=== PATIENT | female | born 1950 | race Caucasian/White ===

== ENCOUNTER → 2021-04-25 11:46 | Outpatient (CLI) | payer OTHER, SELFPAY ==
[2021-04-25 12:16] LABS: COVID19 -Nasal RAPID Negative (Negative)
== END ==
PROVIDERS: Visit Provider Family Medicine Sleep Medicine
DX: Z20.822 Contact with and (suspected) exposure to COVID-19 (principal)
CPT/HCPCS: 87635; C9803

== ENCOUNTER → 2021-04-28 08:29 | Outpatient (CLI) | payer OTHER, SELFPAY ==
--- NOTE | 2021-04-28 | DI.NM.S_ITS ---
PROCEDURE: NM LITZY PERF SPECT REST & STR Rest and exercise myocardial perfusion SPECT with gated imaging and ejection fraction RADIOPHARMACEUTICAL: 12.5 mCi Tc-99m sestamibi IV at rest and 25/6 mCi Tc-99m sestamibi IV at peak exercise. A one day-protocol was performed. INDICATIONS: Chest pain, unspecified TECHNIQUE: Radiopharmaceutical was injected at peak stress test, and also at rest. SPECT images were obtained. SPECT myocardial perfusion images were displayed in short axis, horizontal long axis, and vertical long axis views. Gated images were reviewed using [employer] software. COMPARISON: None. CARDIAC STRESS: A standard Leo treadmill exercise tolerance test was performed by the patient under the supervision of an attending staff. The patient exercised for 6 minutes and 16 seconds; functional aerobic impairment (JULIAN) is -11%. Hemodynamic data: There is normal blood pressure and heart rate response to exercise stress. Patient achieved 87% of maximum predicted heart rate at peak exercise. Symptoms: Patient denied chest pain during exercise. EKG: Sinus rhythm with minimal ST depressions in the inferior and anterolateral leads at rest. With exercise, there were mild ST depressions in the inferior and anterolateral leads. No ectopy. FINDINGS: Raw data: There is good myocardial labeling by radiotracer. No significant motion artifacts. Rcei-nj-twswi ratio is 0.28 (normal is less than 0.38 for sestamibi tracer, and less than 0.50 for thallium tracer). Left ventricle function: Gated images demonstrate normal left ventricle wall thickening. No segmental wall motion abnormality. No transient ischemic dilation; TID is 0.91 (normal less than 1.3). The left ventricle resting end-diastolic volume is 93 mL. Left ventricle stress ejection fraction is 73%; normal values are above 45%. Myocardial perfusion: There is normal distribution of activity in the left and right ventricular myocardium. No fixed or reversible perfusion defects. IMPRESSION: Low risk, normal treadmill nuclear stress test 1) No perfusion evidence of ischemia or infarction. 2) Normal left ventricular size, wall motion, and systolic function (EF post stress 73%). 3) Mild ST depressions with exercise, which are probably due to baseline ST changes. 4) No angina during the study. 5) Above average exercise tolerance (6.4 METs, JULIAN -11%). Target heart rate achieved as 87% of maximum predicted heart rate reached. Appropriate BP response to exercise. 6) No prior nuclear stress test available for comparison. Dictated by: More Ramirez MD on 04/28/2021 at 16:22 Approved by: More Ramirez MD on 04/28/2021 at 16:26
--- NOTE | 2021-04-28 | DI.ECHO.S_ITS ---
[place] [facility]---------+ [facility] +---------+ : : [address] : : : : [id number] : : : : Phone: [phone]+ Echocardiogram Report + + :Name: ROSAMARIA CHAVIRA Study Date: 04/28/2021 Height: 60 in : :[facility] ReadingLocation: Weight: 125 lb : : Gender: Female BSA: 1.5 m2 : :: 1950 Age: 70 yrs BP: 153/95 mmHg: :Reason For Study: CHEST PAIN : :Ordering Physician: ARIANA : :WYATT Performed By: Lara Castillo : :Referring: WYATT LANE : + + Interpretation Summary The ejection fraction is estimated to be 60-65%. Grade II diastolic dysfunction. The left atrium is moderately dilated. A patent foramen ovale is suspected. The right ventricle is normal in size and function. There is mild mitral regurgitation. Pulmonary artery pressures cannot be estimated because of the lack of a measurable TR jet velocity. Procedure: A two-dimensional transthoracic echocardiogram with color flow and Doppler was performed. The study quality was technically adequate. There is no prior echocardiogram noted for this patient. The patient was in sinus rhythm with heart rates between 68-75 bpm during the exam. Left Ventricle: The left ventricle is normal in size and wall thickness. The ejection fraction is estimated to be 60-65%. Grade II diastolic dysfunction. Right Ventricle: The right ventricle is normal in size and function. Atria: The left atrium is moderately dilated. Right atrial size is normal. A patent foramen ovale is suspected. Mitral Valve: The mitral valve leaflets appear mildly thickened, but open well. There is mild mitral annular calcification. There is mild mitral regurgitation. Aortic Valve: The aortic valve is trileaflet. The aortic valve opens well. There is no aortic valve stenosis. There is trace aortic regurgitation. Tricuspid Valve: The tricuspid valve is normal in structure and function. There is trace tricuspid regurgitation. Pulmonary artery pressures cannot be estimated because of the lack of a measurable TR jet velocity. Pulmonic Valve: The pulmonic valve is not well seen, but is grossly normal. There is trace pulmonic regurgitation. Great Vessels: The aortic root is normal size. The dimensions of the ascending aorta are normal. The IVC is of normal diameter and collapses greater than 50% with a sniff. This suggests a low right atrial pressure of 3 mm Hg. Pericardium/ Pleura There is no pericardial effusion. There is no pleural effusion. MMode/2D Measurements & Calculations LVIDd: 4.3 cm LVOT diam: 2.0 cm LVIDs: 3.1 cm Ao root diam: 3.0 cm FS: 28.0 % asc Aorta Diam: 3.1 cm IVSd: 0.88 cm Ao Arch Diam (Prox Trans): 2.4 cm LVPWd: 0.72 cm LV ennis. diameter/BSA (cm/m^2): 2.8 LV sys. diameter/BSA (cm/m^2): 2.0 LA A2 area: 21.5 cm2 RA long axis: 4.5 cm LA A4 area: 20.2 cm2 RA area: 14.6 cm2 LA length (vol): 5.3 cm RA vol: 40.4 ml LA vol: 69.1 ml RA : 26.4 ml/m2 LA vol index: 45.2 ml/m2 IVC diam: 1.3 cm RVD1 (basal): 3.6 cm TAPSE: 2.0 cm Doppler Measurements & Calculations Ao V2 max: 138.6 cm/sec LVOT Max Ignacio: 94.0 cm/sec Ao V2 mean: 92.8 cm/sec LV V1 max P.5 mmHg Ao max P.7 mmHg LV V1 VTI: 18.7 cm Ao mean P.9 mmHg CONG(I,D): 1.9 cm2 Ao V2 VTI: 29.3 cm CONG(V,D): 2.0 cm2 sev ratio: 0.64 CONG indexed to BSA (cm^2/m^2): 1.3 MV E max ignacio: 82.6 cm/sec TR max ignacio: 231.7 cm/sec MV A max ignacio: 91.9 cm/sec TR max P.5 mmHg MV E/A: 0.90 PA V2 max: 88.2 cm/sec Med Peak E' Ignacio: 4.3 cm/sec PA V2 mean: 56.5 cm/sec E/E' med: 19.2 PA mean P.5 mmHg Lat Peak E' Ignacio: 6.4 cm/sec PA pr(Accel): 15.6 mmHg E/E' lat: 13.0 E/e' average: 16.1 MV dec time: 0.22 sec SV(LVOT): 56.1 ml Reading Physician:11:56 AM
--- NOTE | 2021-04-28 15:18 | PM.TREADMILL ---
Cardiac Stress Test Report Referral & Results Date Patient Seen: 04/28/21 Time Patient Seen: 15:18 Requesting provider: Sierra Torres Indication: Chest pain Rest ECG: Sinus rhythm Procedure Note: Standard Leo protocol, 6:16, 6.4 METs Good exercise capacity, JULIAN -11% Normal hemodynamic response to exercise No chest pain or anginal symptoms Less than [address] depression in V3-V5 No ectopy Impression: Equivocal exercise stress test Nuclear images pending Please note: Actual ECG tracings can be found in the PACS system.
== END ==
PROVIDERS: Referring Provider Nurse Practitioner Acute Care; Visit Provider Nurse Practitioner Acute Care
DX: R07.9 Chest pain, unspecified (principal); I34.0 Nonrheumatic mitral (valve) insufficiency
CPT/HCPCS: 78452; 93016; 93017; 93018; 93306; A9502